=== PATIENT | female | born 1935 | race Two or more races ===

== ENCOUNTER 2018-07-23 14:02 | Inpatient (IN) | payer MEDICARE, OTHER ==
[~2018-07-23] VITALS: Ht 160 cm; Wt 62.6 kg
[2018-07-23] MEDS ORDERED: CLINDAMYCIN PHOSPHATE IV 600 MG in IV DEXTROSE 5% 100 ML IV ONE (14:30)
[2018-07-23] MEDS ORDERED: CLINDAMYCIN PHOSPHATE 600 MG/4 ML VIAL ONE (14:45)
[2018-07-23 14:46] LABS: BASOPHILS % (AUTO) 0.3 % (0.0-2.0); HEMATOCRIT 34.9 % (31.2-41.9); HEMOGLOBIN 11.4 g/dL (10.9-14.3); LYMPHOCYTES # (AUTO) 1.3 K/uL (20.0-40.0); LYMPHOCYTES % (AUTO) 8.6 % (20.5-51.5); MEAN CORPUSCULAR HEMOGLOBIN 32.7 uug (24.7-32.8); MEAN CORPUSCULAR HGB CONC 33 g/dL (32.3-35.6); MEAN CORPUSCULAR VOLUME 100.4 fL (75.5-95.3); MONOCYTES # (AUTO) 0.7 K/uL (2.0-10.0); MONOCYTES % (AUTO) 5.1 % (0.0-11.0); NEUTROPHILS # (AUTO) 12.6 K/uL (1.8-8.9); PLATELET COUNT (AUTO) 154 K/uL (179-408); RED BLOOD CELL COUNT(AUTO) 3.48 MIL/uL (3.63-4.92); WHITE BLOOD COUNT (AUTO) 14.6 K/uL (3.8-11.8)
[2018-07-23 14:54] LABS: CARBON DIOXIDE 20 mmol/L (21-32); CHLORIDE 102 mmol/L (98-107); CREATININE 1.1 mg/dL (0.6-1.3); GLUCOSE 113 mg/dL (74-106); POTASSIUM 4.2 mmol/L (3.5-5.1); UREA NITROGEN, BLOOD 15 mg/dL (7-18)
[2018-07-23] MEDS ORDERED: MORPHINE SULFATE 4 MG/1 ML DISP.SYRIN ONE (15:27)
[2018-07-23] MEDS ORDERED: IV NORMAL SALINE 1000 ML BAG IV ONE (15:30)
[2018-07-23] MEDS ORDERED: TDAP DIPH,PERTUSS,TET VAC/PF 0.5 ML DISP.SYRIN IM ONE ×2 (15:30→15:34)
[2018-07-23] MEDS ORDERED: MORPHINE SULFATE 4 MG/1 ML DISP.SYRIN IV ONE (15:30)
[2018-07-23 17:10] VITALS: BP 115/55
[2018-07-23 17:13] LABS: BILIRUBIN,DIRECT 0.3 mg/dL (0.0-0.2); BILIRUBIN,TOTAL 0.9 mg/dL (0.2-1.0)
[2018-07-23 17:53] LABS: BILIRUBIN,DIRECT 0.2 mg/dL (0.0-0.2); BILIRUBIN,TOTAL 0.8 mg/dL (0.2-1.0)
[2018-07-23] MEDS ORDERED: MAGNESIUM HYDROXIDE 30 ML LIQUID UDC PO PRN (19:15)
[2018-07-23] MEDS ORDERED: ZOLPIDEM 5 MG TABLET PO PRN (19:15)
[2018-07-23] MEDS: IV NS 1000 ML 1,000 ML IV PRN (20:00)
[2018-07-23 20:28] LABS: *BILIRUBIN,URIN NEGATIVE (NEGATIVE); *BLOOD, URINE NEGATIVE (NEGATIVE); *CLARITY,URINE CLEAR (CLEAR); *COLOR,URINE YELLOW (YELLOW); *KETONES,URINE 1+ (NEGATIVE); *UROBILINOGEN,URINE 0.2 E.U./dl (NORMAL); LEUKOCYTE ESTERASE ,URINE NEGATIVE (NEGATIVE); NITRITE, URINE NEGATIVE (NEGATIVE); PH,URINE 5.5 (5.0-8.0); UGLUCOSE NEGATIVE (NEGATIVE)
[2018-07-23] MEDS ORDERED: GENTAMICIN SULFATE 80 MG/2 ML VIAL ONE (20:28)
[2018-07-23] MEDS: ONDANSETRON 4 MG/2 ML VIAL IV PRN (20:30)
[2018-07-23] MEDS ORDERED: GENTAMICIN SULFATE INJ 80 MG in IV DEXTROSE 5% 100 ML IV ONE (20:30)
[2018-07-23 20:33] LABS: BACTERIA,URINE R /HPF (NONE SEEN); MUCUS,URINE FEW /LPF (0-FEW); RBC,URINE 0-3 /HPF (0-3); SQUAMOUS EPITHELIAL CELL,UR FEW /HPF (NONE SEEN); WBC,URINE 0-3 /HPF (0-3)
[2018-07-23 20:48] VITALS: BP 132/59
[2018-07-24] MEDS: HYDROCODONE/APAP 5-325MG TABLET PO PRN ×2 (03:18→10:25)
[2018-07-24] MEDS ORDERED: HYDROCODONE/APAP 5-325MG TABLET PO ONE (04:45)
[2018-07-24 05:41] VITALS: BP 108/40
[2018-07-24] MEDS: PANTOPRAZOLE SODIUM 40 MG TABLET.DR PO SCH (06:25)
[2018-07-24 06:39] LABS: BASOPHILS % (AUTO) 0.1 % (0.0-2.0); HEMATOCRIT 28.9 % (31.2-41.9); HEMOGLOBIN 9.5 g/dL (10.9-14.3); LYMPHOCYTES % (AUTO) 7.6 % (20.5-51.5); MEAN CORPUSCULAR HEMOGLOBIN 33.4 uug (24.7-32.8); MEAN CORPUSCULAR HGB CONC 33 g/dL (32.3-35.6); MEAN CORPUSCULAR VOLUME 101.4 fL (75.5-95.3); MONOCYTES % (AUTO) 7.5 % (0.0-11.0); NEUTROPHILS # (AUTO) 10.8 K/uL (1.8-8.9); NEUTROPHILS % (AUTO) 84.8 % (38.5-71.5); PLATELET COUNT (AUTO) 119 K/uL (179-408); RED BLOOD CELL COUNT(AUTO) 2.85 MIL/uL (3.63-4.92); WHITE BLOOD COUNT (AUTO) 12.8 K/uL (3.8-11.8)
[2018-07-24 06:48] LABS: IRON, SERUM 13 ug/dL (50-175)
[2018-07-24 07:03] LABS: THYROID STIMULATING HORMONE 3.528 mIU/mL (0.358-3.740)
[2018-07-24 07:24] LABS: CARBON DIOXIDE 20 mmol/L (21-32); CHLORIDE 102 mmol/L (98-107); CHOLESTEROL 95 mg/dL (<200); CREATININE 0.9 mg/dL (0.6-1.3); GLUCOSE 130 mg/dL (74-106); HDL CHOLESTEROL 39 mg/dL (40-60); MAGNESIUM 1.9 mg/dL (1.8-2.4); PHOSPHOROUS 3.2 mg/dL (2.5-4.9); POTASSIUM 3.8 mmol/L (3.5-5.1); TRIGLYCERIDES 47 MG/DL (30-150); UREA NITROGEN, BLOOD 11 mg/dL (7-18)
[2018-07-24] MEDS: IV NS 1000 ML 1,000 ML IV PRN (10:28)
[2018-07-24 11:48] VITALS: BP 130/51
[2018-07-24] MEDS ORDERED: GENTAMICIN SULFATE INJ 60 MG in IV DEXTROSE 5% 50 ML IV SCH (13:00)
[2018-07-24] MEDS ORDERED: HYDROCODONE/APAP 10-325 MG TABLET PO PRN (13:30)
[2018-07-24 16:10] VITALS: BP 107/40
[2018-07-24] MEDS: ONDANSETRON 4 MG/2 ML VIAL IV PRN (17:27)
[2018-07-24 18:15] LABS: CARBON DIOXIDE 20 mmol/L (21-32); CHLORIDE 102 mmol/L (98-107); CREATININE 1.1 mg/dL (0.6-1.3); GLUCOSE 144 mg/dL (74-106); POTASSIUM 3.9 mmol/L (3.5-5.1); UREA NITROGEN, BLOOD 11 mg/dL (7-18)
[2018-07-24 18:25] LABS: BASOPHILS % (AUTO) 0.2 % (0.0-2.0); HEMATOCRIT 33.7 % (31.2-41.9); HEMOGLOBIN 10.9 g/dL (10.9-14.3); LYMPHOCYTES # (AUTO) 1.4 K/uL (20.0-40.0); LYMPHOCYTES % (AUTO) 11.9 % (20.5-51.5); MEAN CORPUSCULAR HEMOGLOBIN 33.2 uug (24.7-32.8); MEAN CORPUSCULAR HGB CONC 32 g/dL (32.3-35.6); MONOCYTES # (AUTO) 0.9 K/uL (2.0-10.0); MONOCYTES % (AUTO) 7.8 % (0.0-11.0); NEUTROPHILS # (AUTO) 9.4 K/uL (1.8-8.9); NEUTROPHILS % (AUTO) 80.1 % (38.5-71.5); PLATELET COUNT (AUTO) 133 K/uL (179-408); RED BLOOD CELL COUNT(AUTO) 3.27 MIL/uL (3.63-4.92); WHITE BLOOD COUNT (AUTO) 11.8 K/uL (3.8-11.8)
[2018-07-24] MEDS: VANCOMYCIN IV 1 G in PREMIXED 0 EACH IV SCH (18:50)
[2018-07-24 20:20] VITALS: BP 132/64
[2018-07-24] MEDS: ACETAMINOPHEN 325 MG TABLET PO PRN (20:20)
[2018-07-24] MEDS: MORPHINE SULFATE 4 MG/1 ML DISP.SYRIN IV PRN ×2 (20:27→23:58)
[2018-07-24] MEDS ORDERED: PIPERACILLIN SODIUM/TAZO 3.375 GM VIAL ONE (21:18)
[2018-07-24] MEDS ORDERED: CLINDAMYCIN PHOSPHATE 600 MG/4 ML VIAL ONE (21:19)
[2018-07-24] MEDS: CLINDAMYCIN PHOSPHATE IV 600 MG in IV DEXTROSE 5% 100 ML IV SCH (21:41)
[2018-07-24] MEDS ORDERED: LIDOCAINE HCL 1% 20 ML VIAL ONE (21:41)
[2018-07-24] MEDS: PIPERACILLIN/TAZOBACTAM/D5W 50 ML IV SCH ×2 (22:51→23:35)
[2018-07-25] VITALS (7 sets, daily range): BP systolic 96–138; BP diastolic 54–75
[2018-07-25] MEDS: IV NS 1000 ML 1,000 ML IV PRN ×2 (01:33→20:00)
[2018-07-25] MEDS: MORPHINE SULFATE 4 MG/1 ML DISP.SYRIN IV PRN ×4 (03:23→21:10)
[2018-07-25] MEDS: ACETAMINOPHEN 325 MG TABLET PO PRN ×3 (03:24→21:09)
[2018-07-25] MEDS: CLINDAMYCIN PHOSPHATE IV 600 MG in IV DEXTROSE 5% 100 ML IV SCH ×3 (05:05→22:11)
[2018-07-25] MEDS: PIPERACILLIN/TAZOBACTAM/D5W 50 ML IV SCH ×3 (05:31→17:19)
[2018-07-25] MEDS: PANTOPRAZOLE SODIUM 40 MG TABLET.DR PO SCH (05:58)
[2018-07-25] MEDS: CULTURELLE CAPSULE PO SCH (21:09)
[2018-07-25] MEDS: VANCOMYCIN IV 1 G in PREMIXED 0 EACH IV SCH (22:50)
[2018-07-26] MEDS: MORPHINE SULFATE 4 MG/1 ML DISP.SYRIN IV PRN ×4 (00:10→20:30)
[2018-07-26] MEDS: PIPERACILLIN/TAZOBACTAM/D5W 50 ML IV SCH ×5 (01:21→23:07)
[2018-07-26] MEDS: CLINDAMYCIN PHOSPHATE IV 600 MG in IV DEXTROSE 5% 100 ML IV SCH ×2 (05:17→13:15)
[2018-07-26] MEDS: ACETAMINOPHEN 325 MG TABLET PO PRN ×2 (05:44→21:55)
[2018-07-26 06:00] VITALS: BP 130/52
[2018-07-26] MEDS: PANTOPRAZOLE SODIUM 40 MG TABLET.DR PO SCH (06:26)
[2018-07-26 06:34] LABS: BASOPHILS % (AUTO) 0.6 % (0.0-2.0); EOSINOPHILS % (AUTO) 0.1 % (0.0-7.0); HEMOGLOBIN 9.3 g/dL (10.9-14.3); LYMPHOCYTES # (AUTO) 0.7 K/uL (20.0-40.0); LYMPHOCYTES % (AUTO) 8.7 % (20.5-51.5); MEAN CORPUSCULAR HEMOGLOBIN 33.4 uug (24.7-32.8); MEAN CORPUSCULAR HGB CONC 33 g/dL (32.3-35.6); MEAN CORPUSCULAR VOLUME 100.3 fL (75.5-95.3); MONOCYTES # (AUTO) 0.6 K/uL (2.0-10.0); MONOCYTES % (AUTO) 7.4 % (0.0-11.0); NEUTROPHILS # (AUTO) 6.8 K/uL (1.8-8.9); NEUTROPHILS % (AUTO) 83.2 % (38.5-71.5); PLATELET COUNT (AUTO) 156 K/uL (179-408); WHITE BLOOD COUNT (AUTO) 8.1 K/uL (3.8-11.8)
[2018-07-26 06:51] LABS: ALANINE AMINOTRANSFERASE 45 U/L (14-59); ALKALINE PHOSPHATASE 64 U/L (50-136); ASPARTATE AMINOTRANSFERASE 46 U/L (15-37); BILIRUBIN,TOTAL 0.7 mg/dL (0.2-1.0); CARBON DIOXIDE 25 mmol/L (21-32); CHLORIDE 101 mmol/L (98-107); GLUCOSE 102 mg/dL (74-106); MAGNESIUM 2.1 mg/dL (1.8-2.4); PHOSPHOROUS 2.7 mg/dL (2.5-4.9); POTASSIUM 3.7 mmol/L (3.5-5.1); TOTAL PROTEIN, SERUM 6.7 g/dL (6.4-8.2); UREA NITROGEN, BLOOD 10 mg/dL (7-18)
[2018-07-26] MEDS: CULTURELLE CAPSULE PO SCH ×2 (08:21→20:03)
[2018-07-26 12:12] VITALS: BP 144/63
[2018-07-26] MEDS: IV NS 1000 ML 1,000 ML IV PRN (13:15)
[2018-07-26 16:33] VITALS: BP 100/67
[2018-07-26 19:35] VITALS: BP 150/77
[2018-07-27] MEDS: VANCOMYCIN IV 1 G in PREMIXED 0 EACH IV SCH (03:03)
[2018-07-27 03:38] VITALS: BP 142/70
[2018-07-27] MEDS: PIPERACILLIN/TAZOBACTAM/D5W 50 ML IV SCH ×4 (05:36→23:18)
[2018-07-27] MEDS: PANTOPRAZOLE SODIUM 40 MG TABLET.DR PO SCH (06:03)
[2018-07-27 06:42] LABS: BASOPHILS # (AUTO) 0.1 K/uL (0.0-8.0); BASOPHILS % (AUTO) 1.1 % (0.0-2.0); EOSINOPHILS % (AUTO) 0.1 % (0.0-7.0); HEMATOCRIT 26.5 % (31.2-41.9); HEMOGLOBIN 8.7 g/dL (10.9-14.3); LYMPHOCYTES # (AUTO) 0.9 K/uL (20.0-40.0); LYMPHOCYTES % (AUTO) 13.5 % (20.5-51.5); MEAN CORPUSCULAR HEMOGLOBIN 33.2 uug (24.7-32.8); MEAN CORPUSCULAR HGB CONC 33 g/dL (32.3-35.6); MEAN CORPUSCULAR VOLUME 100.9 fL (75.5-95.3); MONOCYTES # (AUTO) 0.6 K/uL (2.0-10.0); MONOCYTES % (AUTO) 8.9 % (0.0-11.0); NEUTROPHILS # (AUTO) 4.9 K/uL (1.8-8.9); NEUTROPHILS % (AUTO) 76.4 % (38.5-71.5); PLATELET COUNT (AUTO) 179 K/uL (179-408); RED BLOOD CELL COUNT(AUTO) 2.62 MIL/uL (3.63-4.92); WHITE BLOOD COUNT (AUTO) 6.4 K/uL (3.8-11.8)
[2018-07-27] MEDS: IV NS 1000 ML 1,000 ML IV PRN (06:44)
[2018-07-27 06:45] LABS: CARBON DIOXIDE 26 mmol/L (21-32); CHLORIDE 103 mmol/L (98-107); GLUCOSE 117 mg/dL (74-106); POTASSIUM 3.3 mmol/L (3.5-5.1); UREA NITROGEN, BLOOD 9 mg/dL (7-18)
[2018-07-27] MEDS: CULTURELLE CAPSULE PO SCH ×2 (09:13→20:09)
[2018-07-27] MEDS ORDERED: POTASSIUM CHLORIDE 20 MEQ TAB.PRT.SR PO ONE (09:30)
[2018-07-27] MEDS: MORPHINE SULFATE 4 MG/1 ML DISP.SYRIN IV PRN ×2 (10:05→18:56)
[2018-07-27 11:24] VITALS: BP 148/76
[2018-07-27] MEDS: ACETAMINOPHEN 325 MG TABLET PO PRN (11:25)
[2018-07-27] MEDS ORDERED: AMPI3VIA IV (11:39)
[2018-07-27] MEDS ORDERED: VANC1FRO2 IV (11:39)
[2018-07-27 15:16] VITALS: BP 130/81
[2018-07-27] MEDS ORDERED: LORAZEPAM 2 MG/1 ML VIAL IV PRN (21:00)
[2018-07-27 21:10] VITALS: BP 185/85
[2018-07-27] MEDS: CLONIDINE HCL 0.1 MG TABLET PO PRN (21:13)
[2018-07-27 22:30] VITALS: BP 153/61
[2018-07-28 03:26] VITALS: BP 165/65
[2018-07-28] MEDS: PIPERACILLIN/TAZOBACTAM/D5W 50 ML IV SCH (05:07)
[2018-07-28] MEDS: CLONIDINE HCL 0.1 MG TABLET PO PRN (05:15)
[2018-07-28 06:00] VITALS: BP 125/52
[2018-07-28] MEDS: PANTOPRAZOLE SODIUM 40 MG TABLET.DR PO SCH (06:10)
[2018-07-28 06:48] LABS: CARBON DIOXIDE 26 mmol/L (21-32); CHLORIDE 105 mmol/L (98-107); CREATININE 0.9 mg/dL (0.6-1.3); GLUCOSE 112 mg/dL (74-106); POTASSIUM 3.4 mmol/L (3.5-5.1); UREA NITROGEN, BLOOD 9 mg/dL (7-18)
[2018-07-28] MEDS ORDERED: GUAIFENESIN/DEXTROMETHORPHAN 5 ML UDC PO PRN (08:45)
[2018-07-28] MEDS: CULTURELLE CAPSULE PO SCH (09:06)
[2018-07-28] MEDS ORDERED: VANCOMYCIN IV 1 G in PREMIXED 0 EACH IV SCH (10:00)
[2018-07-28] MEDS ORDERED: POTASSIUM CHLORIDE 20 MEQ TAB.PRT.SR PO ONE (11:30)
[2018-07-28 11:31] VITALS: BP 143/75
== END 2018-07-28 11:30 | DRG 872 ==
LOC: ER 14:02 → MEDSURG3 16:02 → TELE3 07-24 20:08 → MEDSURG3 07-25 15:16
PROVIDERS: ADMIT Internal Medicine; ATTEND Internal Medicine
PROC: 05HY33Z Insertion of Infusion Device into Upper Vein, Percutaneous Approach (ICD-10-PCS; principal; 2018-07-26)
DX: A41.9 Sepsis, unspecified organism (principal); L03.113 Cellulitis of right upper limb; S50.87 Other superficial bite of forearm; W55.01XS Bitten by cat, sequela; Z96.653 Presence of artificial knee joint, bilateral; D75.89 Other specified diseases of blood and blood-forming organs; M19.90 Unspecified osteoarthritis, unspecified site; Z98.42 Cataract extraction status, left eye; Z98.41 Cataract extraction status, right eye; E87.6 Hypokalemia; D50.9 Iron deficiency anemia, unspecified; D69.6 Thrombocytopenia, unspecified; R19.7 Diarrhea, unspecified
CPT/HCPCS: 36415; 36569; 71045; 73130; 82378; 83550; 83605; 83735; 84100; 84443; 85025; 87040; 87086; 90715; 93005; 97110; 97116; 97530; A4663; G0378; J1580; J2270; J2405; J2543; J3370; J3490; J7030; J7060

== ENCOUNTER 2020-10-03 10:41 | Inpatient (IN) | payer MEDICARE ==
[~2020-10-03] VITALS: Ht 157.5 cm; Wt 52.9 kg
[~2020-10-03 10:41] MED LIST: AMPI3VIA IV; VANC1FRO2 IV
[2020-10-03] MEDS ORDERED: IV NORMAL SALINE 500 ML BAG IV ONE (11:00)
[2020-10-03] MEDS ORDERED: NITROGLYCERIN 0.4 MG/TAB BOTTLE SL ONE (11:07)
[2020-10-03 11:19] LABS: BASOPHILS # (AUTO) 0.1 K/uL (0.0-8.0); BASOPHILS % (AUTO) 1.5 % (0.0-2.0); EOSINOPHILS % (AUTO) 0.8 % (0.0-7.0); HEMATOCRIT 42.7 % (31.2-41.9); HEMOGLOBIN 14.2 g/dL (10.9-14.3); LYMPHOCYTES # (AUTO) 0.7 K/uL (20.0-40.0); LYMPHOCYTES % (AUTO) 13.9 % (20.5-51.5); MEAN CORPUSCULAR HEMOGLOBIN 34.8 uug (24.7-32.8); MEAN CORPUSCULAR HGB CONC 33 g/dL (32.3-35.6); MEAN CORPUSCULAR VOLUME 104.2 fL (75.5-95.3); MONOCYTES # (AUTO) 0.7 K/uL (2.0-10.0); MONOCYTES % (AUTO) 14.1 % (0.0-11.0); NEUTROPHILS # (AUTO) 3.5 K/uL (1.8-8.9); NEUTROPHILS % (AUTO) 69.7 % (38.5-71.5); PLATELET COUNT (AUTO) 159 K/uL (179-408)
[2020-10-03 11:27] LABS: CREATININE 1.2 mg/dL (0.6-1.3); POTASSIUM 4.1 mmol/L (3.5-5.1)
[2020-10-03 11:39] LABS: BILIRUBIN,DIRECT 0.2 mg/dL (0.0-0.2); BILIRUBIN,TOTAL 0.9 mg/dL (0.2-1.0); TOTAL PROTEIN, SERUM 7.7 g/dL (6.4-8.2)
[2020-10-03] MEDS ORDERED: AZITHROMYCIN 500MG/ D5W 250ML IVPB **ER PYXIS ONLY IV ONE (11:59)
[2020-10-03] MEDS ORDERED: CEFTRIAXONE 1 G VIAL ONE (11:59)
[2020-10-03] MEDS ORDERED: CEFTRIAXONE 2 G in IV DEXTROSE 5% 100 ML IV ONE (12:00)
[2020-10-03] MEDS ORDERED: AZITHROMYCIN IV 500 MG in IV DEXTROSE 5% 250 ML IV ONE (12:00)
[2020-10-03 15:33] VITALS: BP 101/45
[2020-10-03] MEDS ORDERED: ACETAMINOPHEN 325 MG TABLET PO PRN (16:30)
[2020-10-03] MEDS ORDERED: Z GUARD REMEDY PASTE 57 GM TUBE TOP PRN (16:30)
[2020-10-03] MEDS ORDERED: MAGNESIUM HYDROXIDE 30 ML LIQUID UDC PO PRN (16:30)
[2020-10-03] MEDS ORDERED: ONDANSETRON 4 MG/2 ML VIAL IV PRN (16:30)
[2020-10-03] MEDS ORDERED: ZOLPIDEM 5 MG TABLET PO PRN (16:30)
[2020-10-03] MEDS ORDERED: CEFTRIAXONE 1 G VIAL IM SCH (18:00)
[2020-10-03] MEDS: GUAIFENESIN/DEXTROMETHORPHAN 5 ML UDC PO PRN (18:32)
[2020-10-03] MEDS: HYDROCODONE/APAP 5-325MG TABLET PO PRN (18:33)
[2020-10-03 20:10] VITALS: BP 107/45
[2020-10-04 00:04] VITALS: BP 106/47
[2020-10-04 04:04] VITALS: BP 106/47
[2020-10-04 04:15] VITALS: BP 118/53
[2020-10-04] MEDS: GUAIFENESIN/DEXTROMETHORPHAN 5 ML UDC PO PRN ×3 (05:57→20:34)
[2020-10-04] MEDS: PANTOPRAZOLE SODIUM 40 MG TABLET.DR PO SCH (06:24)
[2020-10-04 06:38] LABS: BASOPHILS # (AUTO) 0.1 K/uL (0.0-8.0); BASOPHILS % (AUTO) 1.9 % (0.0-2.0); EOSINOPHILS # (AUTO) 0.3 K/uL (0.0-0.7); EOSINOPHILS % (AUTO) 5.5 % (0.0-7.0); HEMOGLOBIN 12.4 g/dL (10.9-14.3); LYMPHOCYTES % (AUTO) 21.3 % (20.5-51.5); MEAN CORPUSCULAR HEMOGLOBIN 34.5 uug (24.7-32.8); MEAN CORPUSCULAR HGB CONC 33 g/dL (32.3-35.6); MEAN CORPUSCULAR VOLUME 106.4 fL (75.5-95.3); MONOCYTES # (AUTO) 0.6 K/uL (2.0-10.0); MONOCYTES % (AUTO) 12.8 % (0.0-11.0); NEUTROPHILS # (AUTO) 2.7 K/uL (1.8-8.9); NEUTROPHILS % (AUTO) 58.5 % (38.5-71.5); PLATELET COUNT (AUTO) 140 K/uL (179-408); RED BLOOD CELL COUNT(AUTO) 3.58 MIL/uL (3.63-4.92); WHITE BLOOD COUNT (AUTO) 4.6 K/uL (3.8-11.8)
[2020-10-04 06:58] LABS: PHOSPHOROUS 4.4 mg/dL (2.5-4.9); POTASSIUM 4.1 mmol/L (3.5-5.1)
[2020-10-04 11:51] VITALS: BP 118/56
[2020-10-04] MEDS ORDERED: CEFTRIAXONE 1 G VIAL IM SCH (12:00)
[2020-10-04] MEDS: CEFTRIAXONE 1 G in IV DEXTROSE 5% 50 ML IV SCH (13:13)
[2020-10-04] MEDS: AZITHROMYCIN IV 500 MG in IV DEXTROSE 5% 250 ML IV SCH (14:32)
[2020-10-04 15:10] VITALS: BP 108/54
[2020-10-04 20:06] VITALS: BP 117/62
[2020-10-05 00:06] VITALS: BP 145/65
[2020-10-05] MEDS ORDERED: HALOPERIDOL LACTATE 5 MG/1 ML VIAL IM STA (04:38)
[2020-10-05] MEDS: PANTOPRAZOLE SODIUM 40 MG TABLET.DR PO SCH (06:02)
[2020-10-05 07:33] VITALS: BP 116/52
[2020-10-05] MEDS: ENSURE ENLIVE (VAN) 240 ML LIQUID PO SCH (08:53)
[2020-10-05] MEDS ORDERED: QUETIAPINE FUMARATE 25 MG TABLET PO PRN (10:00)
[2020-10-05 10:55] LABS: ABG BASE EXCESS -1.9 mmol/L; ABG HCO3 21.5 mmol/L; ABG PCO2 32.8 mmHg (35.0-45.0); ABG PH 7.434 (7.350-7.450); ABG PO2 46.4 mmHg (75.0-100.0); ABG SITE RIGHT RADIAL; ABG TOTAL HEMOGLOBIN 13.7 G/dL (12.0-16.0); COHb 1.7 % (0.5-1.5); MetHb 0.6 % (0.0-1.5); O2Hb 82.3 % (94.0-97.0); VENT MODE Room Air
[2020-10-05 11:05] LABS: BASOPHILS # (AUTO) 0.1 K/uL (0.0-8.0); BASOPHILS % (AUTO) 1.6 % (0.0-2.0); EOSINOPHILS % (AUTO) 0.5 % (0.0-7.0); HEMATOCRIT 41.2 % (31.2-41.9); HEMOGLOBIN 13.7 g/dL (10.9-14.3); LYMPHOCYTES # (AUTO) 0.7 K/uL (20.0-40.0); LYMPHOCYTES % (AUTO) 13.8 % (20.5-51.5); MEAN CORPUSCULAR HEMOGLOBIN 34.8 uug (24.7-32.8); MEAN CORPUSCULAR HGB CONC 33 g/dL (32.3-35.6); MEAN CORPUSCULAR VOLUME 104.5 fL (75.5-95.3); MONOCYTES # (AUTO) 0.5 K/uL (2.0-10.0); MONOCYTES % (AUTO) 10.9 % (0.0-11.0); NEUTROPHILS # (AUTO) 3.5 K/uL (1.8-8.9); NEUTROPHILS % (AUTO) 73.2 % (38.5-71.5); PLATELET COUNT (AUTO) 161 K/uL (179-408); RED BLOOD CELL COUNT(AUTO) 3.94 MIL/uL (3.63-4.92); WHITE BLOOD COUNT (AUTO) 4.8 K/uL (3.8-11.8)
[2020-10-05 11:08] VITALS: BP 141/60
[2020-10-05 11:18] LABS: CREATININE 0.9 mg/dL (0.6-1.3); MAGNESIUM 1.9 mg/dL (1.8-2.4); PHOSPHOROUS 3.9 mg/dL (2.5-4.9); POTASSIUM 4.2 mmol/L (3.5-5.1)
[2020-10-05 11:41] LABS: FERRITIN 243 ng/mL (8-252); LACTATE DEHYDROGENASE 472 U/L (81-234)
[2020-10-05] MEDS: CEFTRIAXONE 1 G in IV DEXTROSE 5% 50 ML IV SCH (13:38)
[2020-10-05] MEDS: AZITHROMYCIN IV 500 MG in IV DEXTROSE 5% 250 ML IV SCH (14:28)
[2020-10-05] MEDS: GUAIFENESIN/DEXTROMETHORPHAN 5 ML UDC PO PRN ×2 (15:49→20:37)
[2020-10-05 17:09] VITALS: BP 110/55
[2020-10-05 20:00] VITALS: BP 133/50
[2020-10-05] MEDS: HYDROCODONE/APAP 5-325MG TABLET PO PRN (20:36)
[2020-10-06 04:00] VITALS: BP 141/78
[2020-10-06] MEDS: GUAIFENESIN/DEXTROMETHORPHAN 5 ML UDC PO PRN (05:41)
[2020-10-06] MEDS: PANTOPRAZOLE SODIUM 40 MG TABLET.DR PO SCH (06:03)
[2020-10-06 06:34] LABS: BASOPHILS # (AUTO) 0.1 K/uL (0.0-8.0); BASOPHILS % (AUTO) 2.8 % (0.0-2.0); EOSINOPHILS # (AUTO) 0.2 K/uL (0.0-0.7); EOSINOPHILS % (AUTO) 6.8 % (0.0-7.0); HEMATOCRIT 36.5 % (31.2-41.9); LYMPHOCYTES # (AUTO) 1.1 K/uL (20.0-40.0); LYMPHOCYTES % (AUTO) 32.4 % (20.5-51.5); MEAN CORPUSCULAR HEMOGLOBIN 34.5 uug (24.7-32.8); MEAN CORPUSCULAR HGB CONC 33 g/dL (32.3-35.6); MEAN CORPUSCULAR VOLUME 105.2 fL (75.5-95.3); MONOCYTES # (AUTO) 0.7 K/uL (2.0-10.0); MONOCYTES % (AUTO) 19.1 % (0.0-11.0); NEUTROPHILS # (AUTO) 1.4 K/uL (1.8-8.9); NEUTROPHILS % (AUTO) 38.9 % (38.5-71.5); PLATELET COUNT (AUTO) 153 K/uL (179-408); RED BLOOD CELL COUNT(AUTO) 3.47 MIL/uL (3.63-4.92); WHITE BLOOD COUNT (AUTO) 3.5 K/uL (3.8-11.8)
[2020-10-06 06:44] LABS: CREATININE 0.8 mg/dL (0.6-1.3); PHOSPHOROUS 4.3 mg/dL (2.5-4.9)
[2020-10-06 06:57] LABS: EOSINOPHILS % (MANUAL) 3 % (0-8); LYMPHOCYTES % (MANUAL) 29 % (20-40); MONOCYTES % (MANUAL) 24 % (2-10); NEUTROPHILS % (MANUAL) 44 % (42-75)
[2020-10-06 08:04] VITALS: BP 99/40
[2020-10-06] MEDS: ENSURE ENLIVE (VAN) 240 ML LIQUID PO SCH (08:36)
[2020-10-06] MEDS ORDERED: ALBUTEROL SULFATE 2.5 MG/ 0.5 ML NEBU NEB PRN (10:15)
[2020-10-06] MEDS ORDERED: IPRATROPIUM BROMIDE 0.5 MG/2.5 ML NEBU NEB PRN (10:15)
[2020-10-06 11:59] VITALS: BP 127/48
[2020-10-06] MEDS: AZITHROMYCIN IV 500 MG in IV DEXTROSE 5% 250 ML IV SCH (14:07)
[2020-10-06] MEDS: CEFTRIAXONE 1 G in IV DEXTROSE 5% 50 ML IV SCH (14:07)
[2020-10-06] MEDS: GUAIFENESIN LA 600 MG TABLET.SA PO SCH ×2 (14:36→21:11)
[2020-10-06 16:43] VITALS: BP 98/67
[2020-10-06 20:09] VITALS: BP 134/92
[2020-10-07 00:06] VITALS: BP 120/55
[2020-10-07 04:09] VITALS: BP 105/62
[2020-10-07] MEDS: PANTOPRAZOLE SODIUM 40 MG TABLET.DR PO SCH (06:44)
[2020-10-07 07:19] LABS: BASOPHILS # (AUTO) 0.1 K/uL (0.0-8.0); BASOPHILS % (AUTO) 1.4 % (0.0-2.0); EOSINOPHILS # (AUTO) 0.3 K/uL (0.0-0.7); HEMATOCRIT 37.8 % (31.2-41.9); HEMOGLOBIN 12.2 g/dL (10.9-14.3); LYMPHOCYTES # (AUTO) 1.2 K/uL (20.0-40.0); LYMPHOCYTES % (AUTO) 26.7 % (20.5-51.5); MEAN CORPUSCULAR HEMOGLOBIN 33.8 uug (24.7-32.8); MEAN CORPUSCULAR HGB CONC 32 g/dL (32.3-35.6); MEAN CORPUSCULAR VOLUME 104.9 fL (75.5-95.3); MONOCYTES # (AUTO) 0.6 K/uL (2.0-10.0); MONOCYTES % (AUTO) 14.4 % (0.0-11.0); NEUTROPHILS # (AUTO) 2.3 K/uL (1.8-8.9); NEUTROPHILS % (AUTO) 51.5 % (38.5-71.5); PLATELET COUNT (AUTO) 155 K/uL (179-408); WHITE BLOOD COUNT (AUTO) 4.4 K/uL (3.8-11.8)
[2020-10-07 07:30] LABS: CREATININE 0.8 mg/dL (0.6-1.3); MAGNESIUM 1.9 mg/dL (1.8-2.4); PHOSPHOROUS 3.7 mg/dL (2.5-4.9); POTASSIUM 4.3 mmol/L (3.5-5.1)
[2020-10-07] MEDS: GUAIFENESIN LA 600 MG TABLET.SA PO SCH ×2 (08:45→20:01)
[2020-10-07] MEDS: ENSURE ENLIVE (VAN) 240 ML LIQUID PO SCH (08:45)
[2020-10-07 11:40] VITALS: BP 119/43
[2020-10-07] MEDS: AZITHROMYCIN IV 500 MG in IV DEXTROSE 5% 250 ML IV SCH (12:18)
[2020-10-07] MEDS: CEFTRIAXONE 1 G in IV DEXTROSE 5% 50 ML IV SCH (13:42)
[2020-10-07 16:00] VITALS: BP 102/51
[2020-10-07 20:09] VITALS: BP 120/62
[2020-10-08 04:09] VITALS: BP 138/60
[2020-10-08] MEDS: PANTOPRAZOLE SODIUM 40 MG TABLET.DR PO SCH (06:18)
[2020-10-08 06:40] LABS: BASOPHILS # (AUTO) 0.1 K/uL (0.0-8.0); BASOPHILS % (AUTO) 1.5 % (0.0-2.0); EOSINOPHILS # (AUTO) 0.3 K/uL (0.0-0.7); EOSINOPHILS % (AUTO) 8.5 % (0.0-7.0); HEMATOCRIT 37.2 % (31.2-41.9); HEMOGLOBIN 12.1 g/dL (10.9-14.3); LYMPHOCYTES % (AUTO) 28.5 % (20.5-51.5); MEAN CORPUSCULAR HEMOGLOBIN 34.2 uug (24.7-32.8); MEAN CORPUSCULAR HGB CONC 33 g/dL (32.3-35.6); MEAN CORPUSCULAR VOLUME 105.2 fL (75.5-95.3); MONOCYTES # (AUTO) 0.5 K/uL (2.0-10.0); NEUTROPHILS # (AUTO) 1.6 K/uL (1.8-8.9); NEUTROPHILS % (AUTO) 46.5 % (38.5-71.5); PLATELET COUNT (AUTO) 144 K/uL (179-408); RED BLOOD CELL COUNT(AUTO) 3.54 MIL/uL (3.63-4.92); WHITE BLOOD COUNT (AUTO) 3.4 K/uL (3.8-11.8)
[2020-10-08 06:52] LABS: CREATININE 0.8 mg/dL (0.6-1.3); MAGNESIUM 2.1 mg/dL (1.8-2.4); POTASSIUM 4.5 mmol/L (3.5-5.1)
[2020-10-08] MEDS: ENSURE ENLIVE (VAN) 240 ML LIQUID PO SCH (08:31)
[2020-10-08] MEDS: GUAIFENESIN LA 600 MG TABLET.SA PO SCH ×2 (08:31→18:26)
[2020-10-08 11:46] VITALS: BP 114/63
[2020-10-08] MEDS: CEFTRIAXONE 1 G in IV DEXTROSE 5% 50 ML IV SCH (12:41)
[2020-10-08 13:07] LABS: EOSINOPHILS % (MANUAL) 7 % (0-8); LYMPHOCYTES % (MANUAL) 31 % (20-40); MONOCYTES % (MANUAL) 14 % (2-10); NEUTROPHILS % (MANUAL) 48 % (42-75)
[2020-10-08] MEDS ORDERED: GUAI600T53 PO (13:21)
[2020-10-08] MEDS ORDERED: AMOX-430 PO (13:21)
[2020-10-08] MEDS ORDERED: HYDR-4209 PO (13:54)
[2020-10-08] MEDS ORDERED: ALBU8.5H8 INH (13:54)
[2020-10-08 15:33] VITALS: BP 103/50
== END 2020-10-08 18:54 | disposition home or self-care (01) | DRG 193 ==
LOC: ER 10:42 → TELE3 14:31 → MEDSURG3 10-07 11:10
PROVIDERS: ADMIT Student in an Organized Health Care Education/Training Program; ATTEND Internal Medicine
DX: J15.9 Unspecified bacterial pneumonia (principal); J96.01 Acute respiratory failure with hypoxia; G92 Toxic encephalopathy; Z20.822 Contact with and (suspected) exposure to COVID-19; D75.89 Other specified diseases of blood and blood-forming organs; F01.50 Vascular dementia, unspecified severity, without behavioral disturbance, psychotic disturbance, mood disturbance, and anxiety; D69.6 Thrombocytopenia, unspecified; K44.9 Diaphragmatic hernia without obstruction or gangrene; Z87.01 Personal history of pneumonia (recurrent); Z96.653 Presence of artificial knee joint, bilateral; R01.1 Cardiac murmur, unspecified; I27.20 Pulmonary hypertension, unspecified; I35.8 Other nonrheumatic aortic valve disorders; I35.0 Nonrheumatic aortic (valve) stenosis; M19.90 Unspecified osteoarthritis, unspecified site
CPT/HCPCS: 36415; 36600; 70030-TC; 70450; 71045; 71250; 83605; 83615; 83735; 84100; 85025; 85730; 86140; 87040; 93005; 93307; 94640; A4663; G0378; J0456; J0696; J1630; J3490; J3590; J7040; J7060; U0003

== ENCOUNTER 2020-11-28 13:15 | Inpatient (IN) | payer MEDICARE ==
[~2020-11-28] VITALS: Ht 157.5 cm; Wt 47.6 kg
[~2020-11-28 13:15] MED LIST changes: +ALBU8.5H8 INH; +AMOX-430 PO; -AMPI3VIA IV; +GUAI600T53 PO; +HYDR-4209 PO; -VANC1FRO2 IV
[2020-11-28 13:53] LABS: MEAN CORPUSCULAR HEMOGLOBIN 34.4 uug (24.7-32.8); MEAN CORPUSCULAR VOLUME 104.6 fL (75.5-95.3); PLATELET COUNT (AUTO) 180 K/uL (179-408)
[2020-11-28 14:03] LABS: CREATININE 0.9 mg/dL (0.6-1.3); POTASSIUM 4.1 mmol/L (3.5-5.1)
[2020-11-28 14:16] LABS: BILIRUBIN,DIRECT 0.1 mg/dL (0.0-0.2); BILIRUBIN,TOTAL 0.5 mg/dL (0.2-1.0); TOTAL PROTEIN, SERUM 7.5 g/dL (6.4-8.2)
[2020-11-28] MEDS ORDERED: ALBU2.5V38 NEB (14:35)
[2020-11-28] MEDS ORDERED: IPRA0.2S6 NEB (14:35)
[2020-11-28 14:48] LABS: ABG BASE EXCESS 0.7 mmol/L; ABG HCO3 24.8 mmol/L; ABG PCO2 37.9 mmHg (35.0-45.0); ABG PH 7.434 (7.350-7.450); ABG PO2 54.8 mmHg (75.0-100.0); ABG SITE RIGHT RADIAL; COHb 1.4 % (0.5-1.5); MetHb 0.4 % (0.0-1.5); O2Hb 85.6 % (94.0-97.0); VENT MODE room air
--- NOTE | 2020-11-28 15:00 | NUR ---
ra of 88%, improved to 91% by O2, 5 litre via nc.
[2020-11-28] MEDS ORDERED: AZITHROMYCIN 250 MG TABLET PO ONE (16:00)
[2020-11-28] MEDS ORDERED: CEFTRIAXONE 1 G in IV DEXTROSE 5% 50 ML IV ONE (16:00)
--- NOTE | 2020-11-28 16:00 | NUR ---
pt's daughter caled and talked to laura myers.
[2020-11-28] MEDS ORDERED: CEFTRIAXONE /D5W 50ML IVPB **ER PYXIS IV ONE (16:14)
[2020-11-28] MEDS ORDERED: AZITHROMYCIN 250 MG TABLET ONE (16:14)
[2020-11-28] MEDS ORDERED: IPRATROPIUM BROMIDE 0.5 MG/2.5 ML NEBU NEB ONE (16:30)
[2020-11-28] MEDS ORDERED: ALBUTEROL SULFATE 2.5 MG/3 ML NEBU NEB ONE (16:30)
[2020-11-28] MEDS ORDERED: ALBUTEROL SULFATE 2.5 MG/3 ML NEBU ONE (16:45)
[2020-11-28] MEDS ORDERED: IPRATROPIUM BROMIDE 0.5 MG/2.5 ML NEBU ONE (16:46)
--- NOTE | 2020-11-28 17:01 | NUR ---
O2 SAT IMPROVED TO 97% AFTER BREATHING TX. PT REMAINED CARLOS WITH NO SIGN OF DISTRESS THE WHOLE ER STAY. TRANSFERED PT TO FLOOR IN STABLE CONDITION.
--- NOTE | 2020-11-28 17:20 | NUR ---
Pt in bed. Pt AOX4. Denies any pain or SOB. PIV on RAC20 is intact. Pt is continent and bedside commode is available with 1 person assist. V/S stable on 6L NC. Personal belongings checked and with the patient. Safety measures in place. Will continue with the plan of care.
[2020-11-28 17:58] VITALS: BP 135/48
[2020-11-28] MEDS ORDERED: Z GUARD REMEDY PASTE 57 GM TUBE TOP PRN (18:15)
[2020-11-28] MEDS ORDERED: ONDANSETRON 4 MG/2 ML VIAL IV PRN (18:15)
[2020-11-28] MEDS ORDERED: ACETAMINOPHEN 325 MG TABLET PO PRN (18:15)
[2020-11-28] MEDS: methylPREDNISolone SOD SUCC 40 MG/ML VIAL IV SCH (18:51)
[2020-11-28 20:49] VITALS: BP 111/46
[2020-11-28] MEDS: ALBUTEROL SULFATE 2.5 MG/3 ML NEBU NEB SCH (21:08)
[2020-11-28] MEDS: IPRATROPIUM BROMIDE 0.5 MG/2.5 ML NEBU NEB SCH (21:08)
[2020-11-29] MEDS: methylPREDNISolone SOD SUCC 40 MG/ML VIAL IV SCH ×3 (02:11→17:52)
[2020-11-29 04:00] VITALS: BP 120/56
--- NOTE | 2020-11-29 05:45 | NUR ---
Pt slept throughout the night. O2 titrated to 4.5L, tolerating well sating at 97%. C/o dry cough, Jim Aguero notified with orders for Cepacol lozenges. Safety and comfort provided. No other issues or concerns at this time, will endorse to day shift.
[2020-11-29 06:09] LABS: MEAN CORPUSCULAR VOLUME 105.8 fL (75.5-95.3)
[2020-11-29 06:12] LABS: HEMATOCRIT 35.9 % (31.2-41.9); MEAN CORPUSCULAR HEMOGLOBIN 33.7 uug (24.7-32.8); PLATELET COUNT (AUTO) 175 K/uL (179-408)
[2020-11-29] MEDS: BENZOCAINE/MENTH/CETYLPYRD LOZENGE MM PRN ×2 (06:20→20:14)
[2020-11-29] MEDS: PANTOPRAZOLE SODIUM 40 MG TABLET.DR PO SCH (06:20)
[2020-11-29 06:42] LABS: THYROID STIMULATING HORMONE 0.779 mIU/mL (0.358-3.740)
--- NOTE | 2020-11-29 06:42 | NUR ---
Patel from lab called at 0639H with critical value WBC 1.2. Jim Aguero notified at 0641H. No new orders at this time.
[2020-11-29 06:43] LABS: BILIRUBIN,TOTAL 0.4 mg/dL (0.2-1.0); CREATININE 0.9 mg/dL (0.6-1.3); MAGNESIUM 2.1 mg/dL (1.8-2.4); PHOSPHOROUS 4.8 mg/dL (2.5-4.9); POTASSIUM 4.8 mmol/L (3.5-5.1); TOTAL PROTEIN, SERUM 7.4 g/dL (6.4-8.2)
[2020-11-29] MEDS: IPRATROPIUM BROMIDE 0.5 MG/2.5 ML NEBU NEB SCH ×4 (07:23→19:38)
[2020-11-29] MEDS: ALBUTEROL SULFATE 2.5 MG/3 ML NEBU NEB SCH ×4 (07:23→19:38)
--- NOTE | 2020-11-29 08:00 | NUR ---
RECEIVED CHANGE OF SHIFT REPORT. PT IN BED RESTING, A/OX4, ON 4.5L O2 VIA NC SATURATING AT 97%, AMBULATORY WITH BRP. PT HAS IV ON THE RIGHT AC 20G SALINE LOCK. NO SIGNS OF DISTRESS, NO REPORTS OF PAIN, PT HAS DRY COUGH, CALL LIGHT WITHIN REACH, WILL CONTINUE WITH PLAN OF CARE.
[2020-11-29 08:58] VITALS: BP 130/55
[2020-11-29 12:38] VITALS: BP 112/49
[2020-11-29 12:42] LABS: LYMPHOCYTES % (MANUAL) 33 % (20-40); MONOCYTES % (MANUAL) 4 % (2-10); NEUTROPHILS % (MANUAL) 63 % (42-75)
[2020-11-29 16:57] VITALS: BP 119/53
--- NOTE | 2020-11-29 18:53 | NUR ---
PT IN BED RESTING, A/OX4, ON 4.5L O2 VIA NC SATURATING AT 97%, AMBULATORY WITH BRP. PT HAS IV ON THE RIGHT AC 20G SALINE LOCK. NO SIGNS OF DISTRESS, NO REPORTS OF PAIN, PT HAS DRY COUGH SPUTUM CULTURE COLLECTED, PENDING STOOL SAMPLE, MEDICATIONS GIVEN ORDERED, ALL NEEDS MET THIS SHIFT. CALL LIGHT WITHIN REACH, WILL ENDORSE TO ONCOMING NURSE.
[2020-11-29 20:12] VITALS: BP 130/61
[2020-11-30] MEDS: methylPREDNISolone SOD SUCC 40 MG/ML VIAL IV SCH ×2 (02:15→09:40)
--- NOTE | 2020-11-30 03:22 | NUR ---
Pt received resting in bed. AxOx4 . VSS. Pt is in no acute distress. Denies any pain or discomfort. No s/s of SOB noted. On 4.5 L saturating @ 95%. Right AC heplock flushed, patent intact. All due medications administered and tolerated well. Ambulatory to the bathroom. Pt has dry cough. Per request gave cough drop, effective. Safety measure maintained. Call light and all personal items within pt reach. Will continue to monitor.
[2020-11-30 04:12] VITALS: BP 137/74
[2020-11-30] MEDS: PANTOPRAZOLE SODIUM 40 MG TABLET.DR PO SCH (06:41)
[2020-11-30 07:50] LABS: IRON, SERUM 125 ug/dL (50-175)
--- NOTE | 2020-11-30 08:00 | NUR ---
Patient received in bed, alert and oriented x4. Patient reports no pain or discomforts at this time. No acute distress noted. Patient is on O2 at 4.5L via NC with no SOB or difficulties breathing. Right AC IV is intact with no redness or swelling at this time. Patient is NPO at this time for CT of the abdomen this AM. WBC count is now 8.5 and reverse contact isolation no longer in place. Call light and personal belongings within easy reach. Will continue to monitor.
[2020-11-30 08:03] LABS: CARBON DIOXIDE 26 mmol/L (21-32); CHLORIDE 103 mmol/L (98-107); FERRITIN 259 ng/mL (8-252); GLUCOSE 154 mg/dL (74-106); MAGNESIUM 2.4 mg/dL (1.8-2.4); PHOSPHOROUS 3.8 mg/dL (2.5-4.9); POTASSIUM 4.5 mmol/L (3.5-5.1); UREA NITROGEN, BLOOD 22 mg/dL (7-18)
[2020-11-30 08:15] LABS: HEMATOCRIT 36.6 % (31.2-41.9); MEAN CORPUSCULAR HEMOGLOBIN 33.9 uug (24.7-32.8); PLATELET COUNT (AUTO) 190 K/uL (179-408)
[2020-11-30] MEDS: IPRATROPIUM BROMIDE 0.5 MG/2.5 ML NEBU NEB SCH ×3 (08:16→15:53)
[2020-11-30] MEDS: ALBUTEROL SULFATE 2.5 MG/3 ML NEBU NEB SCH ×3 (08:16→15:53)
[2020-11-30] MEDS ORDERED: PRED20TA PO (10:11)
[2020-11-30 11:46] VITALS: BP 140/55
[2020-11-30 13:32] LABS: *OCCULT BLOOD STOOL NEGATIVE (NEGATIVE)
[2020-11-30 13:44] LABS: *RHEUMATOID FACTOR SCREEN NEGATIVE (NEGATIVE)
--- NOTE | 2020-11-30 16:30 | NUR ---
Patient discharged. Picked up by Fabby, her friend, with all her personal belongings. She was instructed on picking up her new medications from the pharmacy and to follow up with her primary care physician within one week. All the information was given to her and she expressed understanding. Discharged in satisfactory condition.
[2020-12-01 08:06] LABS: *IMMUNOGLOBULIN G, SERUM 1260 mg/dL (586-1602); IMMUNOGLOBULIN A, SERUM 473 mg/dL (64-422); IMMUNOGLOBULIN M, SERUM 77 mg/dL (26-217)
[2020-12-02 15:06] LABS: ALBUMIN 3.5 g/dL (2.9-4.4); ALPHA-1-GLOBULIN 0.3 g/dL (0.0-0.4); ALPHA-2-GLOBULIN 0.8 g/dL (0.4-1.0); BETA GLOBULIN 1.2 g/dL (0.7-1.3); GAMMA GLOBULIN 1.4 g/dL (0.4-1.8); GLOBULIN, TOTAL 3.6 g/dL (2.2-3.9); M-SPIKE Not Observed g/dL (Not Observed)
[2020-12-03 11:07] LABS: *ANTI-SCLERODERMA-70 AB <0.2 AI (0.0-0.9); *SJOGREN'S ANTI-SS-A <0.2 AI (0.0-0.9); *SJOGREN'S ANTI-SS-B <0.2 AI (0.0-0.9); *SMITH ANTIBODIES 0.3 AI (0.0-0.9); ANTI-DNA(DS) AB, QN <1 IU/mL (0-9)
== END 2020-11-30 16:30 | disposition home or self-care (01) | DRG 189 ==
LOC: ER 13:16 → TELE3 16:50 → MEDSURG3 23:17
PROVIDERS: ADMIT Nurse Practitioner Acute Care; ATTEND Nurse Practitioner Acute Care
DX: J96.21 Acute and chronic respiratory failure with hypoxia (principal); J84.9 Interstitial pulmonary disease, unspecified; I50.32 Chronic diastolic (congestive) heart failure; D61.818 Other pancytopenia; Z99.81 Dependence on supplemental oxygen; Z87.01 Personal history of pneumonia (recurrent); I27.20 Pulmonary hypertension, unspecified; I35.0 Nonrheumatic aortic (valve) stenosis; K44.9 Diaphragmatic hernia without obstruction or gangrene; I25.10 Atherosclerotic heart disease of native coronary artery without angina pectoris; F17.210 Nicotine dependence, cigarettes, uncomplicated; Z96.653 Presence of artificial knee joint, bilateral; D75.89 Other specified diseases of blood and blood-forming organs; Z20.822 Contact with and (suspected) exposure to COVID-19; B30.9 Viral conjunctivitis, unspecified
CPT/HCPCS: 36415; 36600; 70030-TC; 71045; 71250; 71270; 82747; 82784; 82785; 83550; 83605; 83735; 84100; 84155; 84165; 84443; 85014; 85025; 86038; 86140; 86334; 86430; 86706; 86803; 87070; 87340; 93005; 94640; 94664; A4663; G0378; J0696; J2920; J3590; Q0144